=== PATIENT | female | born 1940 | race Caucasian/White ===

== ENCOUNTER 2017-11-12 10:55 | Inpatient (IN) | payer MEDICARE, BC ==
[~2017-11-12] VITALS: Ht 162.6 cm; Wt 77.0 kg
[~2017-11-12 10:55] MED LIST: ASCO500T8 PO; CELE200C PO; CHOL40002 PO; GABA300C10 PO; HYDR-3245 PO; IRON PO; LISI-167 PO; LOPE2TAB28 PO; MELA2.5T PO; OMEP-110 PO; OXYGEN NAS; PRAV10TA2 PO; PROBIOTIC GUMMIE PO; ROPI2TAB3 PO; SERT25TA PO; SITA25TA PO
[2017-11-12] MEDS ORDERED: [UNRECOGNIZED DRUG - OTHER] PO (11:06)
[2017-11-12] MEDS ORDERED: SODIUM CHLORIDE FLUSH 10ML SYR IVF ONE (11:30)
[2017-11-12] MEDS ORDERED: ALBUTEROL/IPRATROPIUM 2.5MG/0.5MG, 3 ML NPPB ONE (11:30)
[2017-11-12] MEDS ORDERED: methylPREDNISolone SOD SUCC 125 MG/2 ML IVP ONE (11:30)
[2017-11-12] MEDS ORDERED: methylPREDNISolone SOD SUCC 125 MG/2 ML ONE (11:31)
[2017-11-12] MEDS ORDERED: ALBUTEROL/IPRATROPIUM 2.5MG/0.5MG, 3 ML ONE ×2 (11:40→15:03)
[2017-11-12] MEDS ORDERED: BUDE10.2 INH (11:51)
[2017-11-12] MEDS ORDERED: POTA99TA24 PO (11:51)
[2017-11-12] MEDS ORDERED: AMLO10TA2 PO (11:51)
[2017-11-12] MEDS ORDERED: BUPR100T11 PO (11:51)
[2017-11-12] MEDS ORDERED: OMEP-110 PO (11:51)
[2017-11-12] MEDS ORDERED: TIOT18CA INH (11:51)
[2017-11-12] MEDS ORDERED: BENA40TA2 PO (11:51)
[2017-11-12 12:04] LABS: BASOPHILS # (AUTO) 0.01 x10^3/uL (0-0.1); BASOPHILS % (AUTO) 0 % (0-1); EOSINOPHILS % (AUTO) 1 % (1-7); LYMPHOCYTES # (AUTO) 1.26 x10^3/uL (1-3.4); LYMPHOCYTES % (AUTO) 8 % (22-44); MD NO; MEAN CORPUSCULAR HEMOGLOBIN 27.3 pg (27.0-34.8); MEAN CORPUSCULAR HGB CONC 32.2 g/dL (32.4-35.8); MEAN CORPUSCULAR VOLUME 84.9 fL (80-100); MEAN PLATELET VOLUME 8.1 fL (7.4-10.4); MONOCYTES # (AUTO) 0.04 x10^3/uL (0.2-0.8); MONOCYTES % (AUTO) 0 % (2-9); NEUTROPHILS # (AUTO) 15.05 x10^3/uL (1.8-6.8); NEUTROPHILS % (AUTO) 91 % (42-75); PLATELET COUNT 264 x10^3/uL (130-400); RED BLOOD COUNT 4.37 x10^6/uL (3.82-5.3); RED CELL DISTRIBUTION WIDTH 18.1 % (9.6-15.2)
[2017-11-12 12:15] LABS: ALANINE AMINOTRANSFERASE 22 U/L (12-78); ALBUMIN 3.7 g/dL (3.4-5.0); ANION GAP 7 mmol/L (5-15); CALCIUM 8.3 mg/dL (8.5-10.1); CHLORIDE 103 mmol/L (98-107)
[2017-11-12 12:20] LABS: ALKALINE PHOSPHATASE 90 U/L (45-117); CREATININE 0.87 mg/dL (0.55-1.02); TROPONIN I < 0.015 ng/mL (0.000-0.045)
[2017-11-12 12:22] LABS: BILIRUBIN,TOTAL 0.4 mg/dL (0.2-1.0)
[2017-11-12] MEDS ORDERED: SODIUM CHLORIDE FLUSH 10ML SYR IVF PRN (13:00)
[2017-11-12] MEDS ORDERED: ONDANSETRON ODT 4 MG PO PRN (13:30)
[2017-11-12] MEDS ORDERED: hydrALAzine 20 MG/ML, 1ML IVPush PRN (13:30)
[2017-11-12] MEDS ORDERED: HYDROcodone/APAP 10/325 MG TABLET PO SCH (13:30)
[2017-11-12 14:25] VITALS: BP 152/73
[2017-11-12] MEDS ORDERED: ALBUTEROL/IPRATROPIUM 2.5MG/0.5MG, 3 ML NPPB PRN (15:30)
[2017-11-12] MEDS: SODIUM CHLORIDE 0.9% 1,000 ML IV SCH (16:58)
[2017-11-12] MEDS: GABAPENTIN 300 MG CAPSULE PO SCH ×2 (16:59→21:11)
[2017-11-12] MEDS: AZITHROMYCIN 500 MG in SODIUM CHLORIDE 0.9% 250 ML IV SCH (16:59)
[2017-11-12] MEDS: ALBUTEROL/IPRATROPIUM 2.5MG/0.5MG, 3 ML NPPB SCH (19:07)
[2017-11-12 19:57] VITALS: BP 128/54
[2017-11-12] MEDS ORDERED: LOPERAMIDE 2 MG CAPSULE PO SCH (21:00)
[2017-11-12] MEDS: BUPROPION SR 150 MG TABLET PO SCH (21:05)
[2017-11-12] MEDS: PRAVASTATIN 20 MG TABLET PO SCH (21:11)
[2017-11-12] MEDS: ROPINIROLE 1MG TABLET PO SCH (21:12)
[2017-11-13 01:42] VITALS: BP 112/52
[2017-11-13] MEDS: SODIUM CHLORIDE 0.9% 1,000 ML IV SCH ×3 (02:11→21:54)
[2017-11-13 05:45] LABS: MEAN CORPUSCULAR HEMOGLOBIN 27.4 pg (27.0-34.8); MEAN CORPUSCULAR HGB CONC 32.1 g/dL (32.4-35.8); MEAN CORPUSCULAR VOLUME 85.2 fL (80-100); MEAN PLATELET VOLUME 8.6 fL (7.4-10.4); PLATELET COUNT 244 x10^3/uL (130-400); RED BLOOD COUNT 3.72 x10^6/uL (3.82-5.3); RED CELL DISTRIBUTION WIDTH 18.6 % (9.6-15.2)
[2017-11-13 05:46] LABS: CHLORIDE 106 mmol/L (98-107)
[2017-11-13 06:03] LABS: ALANINE AMINOTRANSFERASE 17 U/L (12-78); ALBUMIN 2.8 g/dL (3.4-5.0); ALKALINE PHOSPHATASE 70 U/L (45-117); ANION GAP 6 mmol/L (5-15); BILIRUBIN,TOTAL 0.5 mg/dL (0.2-1.0); CALCIUM 8.7 mg/dL (8.5-10.1); CREATININE 0.82 mg/dL (0.55-1.02); TOTAL PROTEIN 5.9 g/dL (6.4-8.2)
[2017-11-13 06:24] LABS: MD YES
[2017-11-13] MEDS: ALBUTEROL/IPRATROPIUM 2.5MG/0.5MG, 3 ML NPPB SCH ×5 (06:25→21:37)
[2017-11-13 06:26] LABS: BAND#(MANUAL) 0.57 x10^3/uL; BANDS%(MANUAL) 3 % (0-7); SEG#(MANUAL) 16.24 x10^3/uL (1.8-6.8); SEGS% (MANUAL) 85 % (42-75)
[2017-11-13 06:27] LABS: LYMPH#(MANUAL) 1.53 x10^3/uL (1-3.4); LYMPHS% (MANUAL) 8 % (22-44); MONOS#(MANUAL) 0.76 x10^3/uL (0.3-2.7); MONOS% (MANUAL) 4 % (2-9)
[2017-11-13 06:28] LABS: ANISOCYTOSIS 1+
[2017-11-13 06:29] LABS: OVALOCYTES 1+
[2017-11-13 06:32] LABS: POLYCHROMASIA 1+
[2017-11-13 06:33] LABS: <PLATELET ESTIMATE> ADEQUATE; <PLT MORPHOLOGY> NORMAL PLT MORPH
[2017-11-13 06:34] LABS: SPHEROCYTES 1+
[2017-11-13 07:07] VITALS: BP 130/62
[2017-11-13] MEDS: HYDROcodone/APAP 10/325 MG TABLET PO PRN ×3 (07:43→21:55)
[2017-11-13] MEDS: LISINOPRIL 10 MG TABLET PO SCH (09:00)
[2017-11-13] MEDS ORDERED: SITAGLIPTIN 25MG TABLET PO SCH (09:00)
[2017-11-13] MEDS ORDERED: POTASSIUM GLUCONATE PO SCH (09:00)
[2017-11-13] MEDS ORDERED: MELATONIN 5 MG TABLET PO SCH ×2 (09:00→21:00)
[2017-11-13] MEDS: BUPROPION SR 150 MG TABLET PO SCH ×2 (09:55→21:55)
[2017-11-13] MEDS: OMEPRAZOLE 20 MG CAPSULE.DR PO SCH (09:55)
[2017-11-13] MEDS: ROPINIROLE 1MG TABLET PO SCH ×2 (09:55→21:55)
[2017-11-13] MEDS: BENAZEPRIL 20 MG TABLET PO SCH (09:55)
[2017-11-13] MEDS: ASCORBIC ACID 500 MG TABLET PO SCH (09:55)
[2017-11-13] MEDS: CHOLECALCIFEROL 1,000 UNIT TABLET PO SCH (09:55)
[2017-11-13] MEDS: SERTRALINE 100MG TABLET PO SCH (09:56)
[2017-11-13] MEDS: GABAPENTIN 300 MG CAPSULE PO SCH ×3 (09:56→21:55)
[2017-11-13] MEDS: methylPREDNISolone SOD SUCC 125 MG/2 ML IVPush SCH ×2 (09:56→18:23)
[2017-11-13] MEDS: AMLODIPINE 2.5 MG TABLET PO SCH (09:57)
[2017-11-13] MEDS: GUAIFENESIN/DM 100-10MG, 5ML UDC PO SCH ×4 (10:07→21:56)
[2017-11-13] MEDS: CEFTRIAXONE PMX 2GM/50ML 50 ML IV SCH (11:07)
[2017-11-13 12:51] VITALS: BP 129/60
[2017-11-13] MEDS: AZITHROMYCIN 500 MG in SODIUM CHLORIDE 0.9% 250 ML IV SCH (18:23)
[2017-11-13 20:02] VITALS: BP 134/66
[2017-11-13] MEDS: PRAVASTATIN 20 MG TABLET PO SCH (21:55)
[2017-11-14 00:54] VITALS: BP 124/63
[2017-11-14] MEDS: GUAIFENESIN/DM 100-10MG, 5ML UDC PO SCH ×3 (02:38→09:06)
[2017-11-14] MEDS: methylPREDNISolone SOD SUCC 125 MG/2 ML IVPush SCH ×2 (02:38→09:06)
[2017-11-14 05:55] LABS: CHLORIDE 103 mmol/L (98-107)
[2017-11-14 05:57] LABS: MEAN CORPUSCULAR HEMOGLOBIN 27.5 pg (27.0-34.8); MEAN CORPUSCULAR HGB CONC 32.3 g/dL (32.4-35.8); MEAN CORPUSCULAR VOLUME 85.1 fL (80-100); MEAN PLATELET VOLUME 8.8 fL (7.4-10.4); PLATELET COUNT 231 x10^3/uL (130-400); RED BLOOD COUNT 3.72 x10^6/uL (3.82-5.3); RED CELL DISTRIBUTION WIDTH 18.7 % (9.6-15.2)
[2017-11-14 06:16] LABS: ALANINE AMINOTRANSFERASE 17 U/L (12-78); ALBUMIN 2.9 g/dL (3.4-5.0); ALKALINE PHOSPHATASE 68 U/L (45-117); ANION GAP 7 mmol/L (5-15); BILIRUBIN,TOTAL 0.2 mg/dL (0.2-1.0); CALCIUM 8.7 mg/dL (8.5-10.1); CREATININE 0.83 mg/dL (0.55-1.02); TOTAL PROTEIN 6.4 g/dL (6.4-8.2)
[2017-11-14] MEDS: ALBUTEROL/IPRATROPIUM 2.5MG/0.5MG, 3 ML NPPB SCH ×2 (06:44→11:38)
[2017-11-14 07:23] LABS: BASOPHILS # (AUTO) 0.01 x10^3/uL (0-0.1); BASOPHILS % (AUTO) 0 % (0-1); EOSINOPHILS % (AUTO) 0 % (1-7); LYMPHOCYTES # (AUTO) 0.49 x10^3/uL (1-3.4); LYMPHOCYTES % (AUTO) 4 % (22-44); MD SCAN; MONOCYTES # (AUTO) 0.15 x10^3/uL (0.2-0.8); MONOCYTES % (AUTO) 1 % (2-9); NEUTROPHILS # (AUTO) 11.63 x10^3/uL (1.8-6.8); NEUTROPHILS % (AUTO) 95 % (42-75)
[2017-11-14 07:34] VITALS: BP 136/71
[2017-11-14] MEDS: ROPINIROLE 1MG TABLET PO SCH ×2 (09:00→09:03)
[2017-11-14] MEDS: AMLODIPINE 2.5 MG TABLET PO SCH ×2 (09:00→09:30)
[2017-11-14] MEDS: CHOLECALCIFEROL 1,000 UNIT TABLET PO SCH ×2 (09:00→09:30)
[2017-11-14] MEDS: LISINOPRIL 10 MG TABLET PO SCH ×2 (09:00→09:06)
[2017-11-14] MEDS: CEFTRIAXONE PMX 2GM/50ML 50 ML IV SCH (09:03)
[2017-11-14] MEDS: BENAZEPRIL 20 MG TABLET PO SCH (09:04)
[2017-11-14] MEDS: BUPROPION SR 150 MG TABLET PO SCH (09:05)
[2017-11-14] MEDS: ASCORBIC ACID 500 MG TABLET PO SCH (09:05)
[2017-11-14] MEDS: GABAPENTIN 300 MG CAPSULE PO SCH (09:06)
[2017-11-14] MEDS: SERTRALINE 100MG TABLET PO SCH (09:06)
[2017-11-14] MEDS: SODIUM CHLORIDE 0.9% 1,000 ML IV SCH (09:29)
[2017-11-14] MEDS: OMEPRAZOLE 20 MG CAPSULE.DR PO SCH (09:30)
[2017-11-14] MEDS ORDERED: AZIT250T PO (10:27)
[2017-11-14] MEDS ORDERED: CEFD300C37 PO ×2 (10:27→13:03)
== END 2017-11-14 13:55 | disposition home or self-care (01) | DRG 871 ==
LOC: ED 11:25 → EDIP 12:44 → 3NE 14:13
PROVIDERS: ADMIT Internal Medicine; ATTEND Internal Medicine
DX: A41.9 Sepsis, unspecified organism (principal); J18.9 Pneumonia, unspecified organism; J96.01 Acute respiratory failure with hypoxia; J44.1 Chronic obstructive pulmonary disease with (acute) exacerbation; E87.3 Alkalosis; J44.0 Chronic obstructive pulmonary disease with (acute) lower respiratory infection; Z87.891 Personal history of nicotine dependence; I25.2 Old myocardial infarction; I10 Essential (primary) hypertension; E78.00 Pure hypercholesterolemia, unspecified; E87.6 Hypokalemia; Z99.81 Dependence on supplemental oxygen; R91.1 Solitary pulmonary nodule; T38.0X5A Adverse effect of glucocorticoids and synthetic analogues, initial encounter; D72.828 Other elevated white blood cell count
CPT/HCPCS: 36415; 71046; 71250; 80053; 83605; 83735; 83880; 84100; 84145; 84484; 85025; 87040; 87070; 87205; 93005; 94640; 99285; J0456; J0696; J7620; J2930; J7030; J7050

== ENCOUNTER → 2018-02-18 | Outpatient (CLI) | payer MEDICARE, BC ==
[~2018-02-18] MED LIST changes: +AMLO10TA6 PO; +AZIT250T PO; +BENA40TA3 PO; +BUDE10.2 INH; +BUPR100T11 PO; +CEFD300C37 PO; +FERR-46 PO; +IPRA3AMP30 NEB; +IPRA4AER INH; +LACT1CAP35 PO; +POTA99TA24 PO; +TIOT18CA INH; +[UNRECOGNIZED DRUG - OTHER] PO; +combivent NEB
[2018-02-18 13:45] LABS: ALBUMIN 3.8 g/dL (3.4-5.0); ANION GAP 5 mmol/L (5-15); CALCIUM 8.9 mg/dL (8.5-10.1); CHLORIDE 107 mmol/L (98-107)
[2018-02-18 13:47] LABS: ALANINE AMINOTRANSFERASE 22 U/L (12-78); ALKALINE PHOSPHATASE 97 U/L (45-117); BILIRUBIN,TOTAL 0.3 mg/dL (0.2-1.0); CREATININE 0.86 mg/dL (0.55-1.02); TOTAL PROTEIN 7.3 g/dL (6.4-8.2)
== END | disposition home or self-care (01) ==
LOC: STAR 11:46
PROVIDERS: ATTEND Internal Medicine Gastroenterology
DX: Z01.818 Encounter for other preprocedural examination (principal); D50.9 Iron deficiency anemia, unspecified; R63.4 Abnormal weight loss; J44.9 Chronic obstructive pulmonary disease, unspecified; E11.9 Type 2 diabetes mellitus without complications; Z87.891 Personal history of nicotine dependence
CPT/HCPCS: 36415; 80053

== ENCOUNTER 2018-02-24 08:11 | Day surgery (SDC) | payer MEDICARE, BC ==
[~2018-02-24] VITALS: Ht 162.6 cm; Wt 73.1 kg
[2018-02-24 09:19] VITALS: BP 116/56
[2018-02-24] MEDS ORDERED: LACTATED RINGERS 1,000 ML IV SCH (09:19)
[2018-02-24] MEDS ORDERED: PROPOFOL 10 MG/ML, 50ML ONE (10:50)
[2018-02-24] MEDS ORDERED: LIDOCAINE-MPF 2% ,5ML ONE (10:50)
== END 2018-02-24 13:15 | disposition home or self-care (01) ==
LOC: OUT 08:11
PROVIDERS: ATTEND Internal Medicine Gastroenterology
DX: D12.0 Benign neoplasm of cecum (principal); D12.4 Benign neoplasm of descending colon; D12.5 Benign neoplasm of sigmoid colon; K31.819 Angiodysplasia of stomach and duodenum without bleeding; K55.20 Angiodysplasia of colon without hemorrhage; K57.30 Diverticulosis of large intestine without perforation or abscess without bleeding; K44.9 Diaphragmatic hernia without obstruction or gangrene; J44.9 Chronic obstructive pulmonary disease, unspecified; I25.10 Atherosclerotic heart disease of native coronary artery without angina pectoris; Z88.5 Allergy status to narcotic agent
CPT/HCPCS: 43239; 45385; 88305; J2704; J3490; J7120

== ENCOUNTER 2018-05-26 21:03 | Inpatient (IN) | payer MEDICARE, BC ==
[~2018-05-26] VITALS: Ht 162.6 cm; Wt 80.1 kg
[2018-05-26] MEDS ORDERED: ACETAMINOPHEN 500 MG TABLET ONE (21:38)
--- NOTE | 2018-05-26 21:44 | NUR ---
PT TO XRAY
[2018-05-26] MEDS ORDERED: ACETAMINOPHEN 500 MG TABLET PO ONE (22:00)
[2018-05-26 22:06] LABS: BASOPHILS # (AUTO) 0.05 x10^3/uL (0-0.1); BASOPHILS % (AUTO) 0 % (0-1); EOSINOPHILS # (AUTO) 0.19 x10^3/uL (0-0.4); EOSINOPHILS % (AUTO) 1 % (1-7); LYMPHOCYTES # (AUTO) 1.64 x10^3/uL (1-3.4); LYMPHOCYTES % (AUTO) 9 % (22-44); MD NO; MEAN CORPUSCULAR HEMOGLOBIN 28.2 pg (27.0-34.8); MEAN CORPUSCULAR HGB CONC 32.8 g/dL (32.4-35.8); MEAN CORPUSCULAR VOLUME 85.9 fL (80-100); MONOCYTES # (AUTO) 0.69 x10^3/uL (0.2-0.8); MONOCYTES % (AUTO) 4 % (2-9); NEUTROPHILS # (AUTO) 14.97 x10^3/uL (1.8-6.8); NEUTROPHILS % (AUTO) 85 % (42-75); PLATELET COUNT 264 x10^3/uL (130-400); RED BLOOD COUNT 3.82 x10^6/uL (3.82-5.3); RED CELL DISTRIBUTION WIDTH 15.4 % (9.6-15.2)
[2018-05-26 22:13] LABS: RAPID INFLUENZA A Negative (Negative); RAPID INFLUENZA B Negative (Negative)
[2018-05-26 22:19] LABS: ALANINE AMINOTRANSFERASE 19 U/L (12-78); ALBUMIN 3.3 g/dL (3.4-5.0); ANION GAP 6 mmol/L (5-15); CALCIUM 8.2 mg/dL (8.5-10.1); CHLORIDE 104 mmol/L (98-107); CREATININE 0.84 mg/dL (0.55-1.02)
[2018-05-26 22:21] LABS: ALKALINE PHOSPHATASE 87 U/L (45-117); BILIRUBIN,TOTAL 0.5 mg/dL (0.2-1.0); TOTAL PROTEIN 6.8 g/dL (6.4-8.2)
[2018-05-26 22:30] LABS: TROPONIN I < 0.015 ng/mL (0.000-0.045)
[2018-05-26] MEDS ORDERED: CEFTRIAXONE 1,000 MG in SODIUM CHLORIDE 0.9% 50 ML IVPB ONE (22:30)
[2018-05-26] MEDS ORDERED: AZITHROMYCIN 500 MG in SODIUM CHLORIDE 0.9% 250 ML IV ONE (22:30)
[2018-05-26] MEDS ORDERED: CEFTRIAXONE PMX 1GM/50ML 50 ML ONE (22:40)
--- NOTE | 2018-05-26 22:45 | NUR ---
PT RESTING. VSS. ABX RUNNING. PT TO BE ADMITTED. CALL LIGHT IN REACH
[2018-05-26] MEDS: BUPROPION 100 MG TABLET PO SCH (23:00)
[2018-05-26] MEDS ORDERED: ACETAMINOPHEN 325 MG TABLET PO PRN (23:00)
[2018-05-26] MEDS ORDERED: ONDANSETRON ODT 4 MG PO PRN (23:00)
[2018-05-26] MEDS ORDERED: POLYETHYLENE GLYCOL 17 GM PACKET PO PRN (23:00)
[2018-05-26] MEDS ORDERED: HYDROcodone/APAP 10/325 MG TABLET PO PRN (23:00)
[2018-05-26] MEDS ORDERED: MORPHINE SULFATE 4 MG/ML, 1ML IVPush PRN (23:00)
[2018-05-26] MEDS ORDERED: ONDANSETRON 2MG/ML, 2ML IVPush PRN (23:00)
[2018-05-26] MEDS ORDERED: GUAIFENESIN/DM 200-20MG, 10ML UDC PO PRN (23:00)
[2018-05-26] MEDS ORDERED: BISACODYL 10 MG SUPP PR PRN (23:00)
[2018-05-27 00:13] VITALS: BP 116/52
[2018-05-27] MEDS: SODIUM CHLORIDE 0.9% 1,000 ML IV SCH ×3 (00:59→22:52)
[2018-05-27] MEDS: HEPARIN 5,000 UNITS/ML, 1ML SQ SCH ×3 (00:59→17:34)
[2018-05-27] MEDS: DOXYCYCLINE 100 MG in DEXTROSE 5% 250 ML IV SCH ×2 (01:00→13:58)
[2018-05-27] MEDS ORDERED: PLEASE ENTER ALLERGIES MC SCH (01:30)
[2018-05-27] MEDS: PRAVASTATIN 20 MG TABLET PO SCH ×2 (01:37→20:26)
[2018-05-27] MEDS: ROPINIROLE 1MG TABLET PO SCH ×2 (01:37→20:26)
[2018-05-27] MEDS: OMEPRAZOLE 20 MG CAPSULE.DR PO SCH ×2 (01:37→20:27)
[2018-05-27] MEDS: GABAPENTIN 300 MG CAPSULE PO SCH ×4 (01:43→20:26)
[2018-05-27] MEDS: BENAZEPRIL 20 MG TABLET PO SCH ×2 (01:45→20:27)
[2018-05-27 02:00] VITALS: BP 132/64
[2018-05-27] MEDS ORDERED: ALBUTEROL/IPRATROPIUM 2.5MG/0.5MG, 3 ML ONE (02:00)
[2018-05-27] MEDS: ALBUTEROL/IPRATROPIUM 2.5MG/0.5MG, 3 ML HHN SCH ×4 (02:04→20:43)
[2018-05-27 02:30] LABS: MICROSCOPIC NOT IND
[2018-05-27 02:53] LABS: CULTURE INDICATED? NO
[2018-05-27 05:38] LABS: BASOPHILS # (AUTO) 0.01 x10^3/uL (0-0.1); BASOPHILS % (AUTO) 0 % (0-1); EOSINOPHILS # (AUTO) 0.25 x10^3/uL (0-0.4); EOSINOPHILS % (AUTO) 2 % (1-7); LYMPHOCYTES # (AUTO) 1.16 x10^3/uL (1-3.4); LYMPHOCYTES % (AUTO) 9 % (22-44); MD NO; MEAN CORPUSCULAR HEMOGLOBIN 28.6 pg (27.0-34.8); MEAN CORPUSCULAR HGB CONC 33.4 g/dL (32.4-35.8); MEAN CORPUSCULAR VOLUME 85.7 fL (80-100); MEAN PLATELET VOLUME 8.4 fL (7.4-10.4); MONOCYTES # (AUTO) 0.57 x10^3/uL (0.2-0.8); MONOCYTES % (AUTO) 4 % (2-9); NEUTROPHILS # (AUTO) 11.34 x10^3/uL (1.8-6.8); NEUTROPHILS % (AUTO) 85 % (42-75); PLATELET COUNT 236 x10^3/uL (130-400); RED BLOOD COUNT 3.65 x10^6/uL (3.82-5.3); RED CELL DISTRIBUTION WIDTH 15.5 % (9.6-15.2)
[2018-05-27 05:47] LABS: ALANINE AMINOTRANSFERASE 15 U/L (12-78); ALBUMIN 3.1 g/dL (3.4-5.0); ANION GAP 5 mmol/L (5-15); CALCIUM 8.4 mg/dL (8.5-10.1); CHLORIDE 107 mmol/L (98-107); CREATININE 0.84 mg/dL (0.55-1.02)
[2018-05-27 05:49] LABS: ALKALINE PHOSPHATASE 78 U/L (45-117); BILIRUBIN,TOTAL 0.5 mg/dL (0.2-1.0); TOTAL PROTEIN 6.3 g/dL (6.4-8.2)
[2018-05-27] MEDS ORDERED: IPRATROPIUM 0.5 MG/2.5 ML INHA NPPB SCH (07:00)
[2018-05-27 08:12] VITALS: BP 136/68
[2018-05-27] MEDS: BUPROPION 100 MG TABLET PO SCH ×2 (08:42→20:27)
[2018-05-27] MEDS: POTASSIUM CHLORIDE 10 MEQ TABLET.ER PO SCH (08:43)
[2018-05-27] MEDS: AMLODIPINE 10 MG TAB PO SCH (08:43)
[2018-05-27] MEDS: SERTRALINE 100MG TABLET PO SCH (08:43)
[2018-05-27] MEDS: SENNA/DOCUSATE TABLET PO SCH (08:43)
[2018-05-27] MEDS ORDERED: OXYGEN NAS SCH (09:00)
[2018-05-27] MEDS: BUDESONIDE 0.5 MG/2 ML INHA INH SCH ×2 (09:22→20:43)
[2018-05-27 12:45] VITALS: BP 101/58
[2018-05-27 20:10] VITALS: BP 158/65
[2018-05-27] MEDS: CEFTRIAXONE PMX 1GM/50ML 50 ML IV SCH (23:15)
[2018-05-28 00:16] VITALS: BP 119/65
[2018-05-28] MEDS: ALBUTEROL/IPRATROPIUM 2.5MG/0.5MG, 3 ML HHN SCH ×4 (02:00→22:15)
[2018-05-28] MEDS: DOXYCYCLINE 100 MG in DEXTROSE 5% 250 ML IV SCH ×2 (02:54→14:57)
[2018-05-28] MEDS: HEPARIN 5,000 UNITS/ML, 1ML SQ SCH ×3 (02:54→21:26)
[2018-05-28] MEDS ORDERED: HYDROcodone/APAP 10/325 MG TABLET PO ONE (05:00)
[2018-05-28 06:05] LABS: BASOPHILS # (AUTO) 0.01 x10^3/uL (0-0.1); BASOPHILS % (AUTO) 0 % (0-1); EOSINOPHILS # (AUTO) 0.24 x10^3/uL (0-0.4); EOSINOPHILS % (AUTO) 3 % (1-7); LYMPHOCYTES # (AUTO) 1.08 x10^3/uL (1-3.4); LYMPHOCYTES % (AUTO) 12 % (22-44); MD NO; MEAN CORPUSCULAR HEMOGLOBIN 28.2 pg (27.0-34.8); MEAN CORPUSCULAR HGB CONC 33.1 g/dL (32.4-35.8); MEAN CORPUSCULAR VOLUME 85.3 fL (80-100); MEAN PLATELET VOLUME 8.3 fL (7.4-10.4); MONOCYTES # (AUTO) 0.58 x10^3/uL (0.2-0.8); MONOCYTES % (AUTO) 7 % (2-9); NEUTROPHILS # (AUTO) 7.01 x10^3/uL (1.8-6.8); NEUTROPHILS % (AUTO) 79 % (42-75); PLATELET COUNT 237 x10^3/uL (130-400); RED BLOOD COUNT 3.46 x10^6/uL (3.82-5.3); RED CELL DISTRIBUTION WIDTH 15.5 % (9.6-15.2)
[2018-05-28 06:11] LABS: ANION GAP 5 mmol/L (5-15); CALCIUM 8.1 mg/dL (8.5-10.1); CHLORIDE 105 mmol/L (98-107); CREATININE 0.74 mg/dL (0.55-1.02)
[2018-05-28 06:40] VITALS: BP 116/63
[2018-05-28] MEDS: SERTRALINE 100MG TABLET PO SCH (08:52)
[2018-05-28] MEDS: GABAPENTIN 300 MG CAPSULE PO SCH ×3 (08:52→21:31)
[2018-05-28] MEDS: POTASSIUM CHLORIDE 10 MEQ TABLET.ER PO SCH (08:52)
[2018-05-28] MEDS: AMLODIPINE 10 MG TAB PO SCH (08:52)
[2018-05-28] MEDS: BUPROPION 100 MG TABLET PO SCH ×2 (08:53→21:30)
[2018-05-28] MEDS: SENNA/DOCUSATE TABLET PO SCH (08:57)
[2018-05-28] MEDS: BUDESONIDE 0.5 MG/2 ML INHA INH SCH ×2 (09:00→22:15)
[2018-05-28] MEDS: HYDROcodone/APAP 10/325 MG TABLET PO PRN ×2 (10:58→18:17)
[2018-05-28] MEDS ORDERED: OMNIPAQUE 350 MG/ML, 100ML BOTTLE ONE (12:47)
[2018-05-28 12:51] VITALS: BP 123/68
[2018-05-28 14:58] LABS: TROPONIN I < 0.015 ng/mL (0.000-0.045)
[2018-05-28] MEDS ORDERED: NITROGLYCERIN 0.4 MG BOTTLE (25 TABS) SL PRN (16:00)
[2018-05-28 18:36] LABS: TROPONIN I < 0.015 ng/mL (0.000-0.045)
[2018-05-28] MEDS: SODIUM CHLORIDE 0.9% 1,000 ML IV SCH (18:52)
[2018-05-28 19:20] VITALS: BP 153/70
[2018-05-28] MEDS: BENAZEPRIL 20 MG TABLET PO SCH (21:29)
[2018-05-28] MEDS: PRAVASTATIN 20 MG TABLET PO SCH (21:32)
[2018-05-28] MEDS: ROPINIROLE 1MG TABLET PO SCH (21:32)
[2018-05-28] MEDS: OMEPRAZOLE 20 MG CAPSULE.DR PO SCH (21:32)
[2018-05-28] MEDS: CEFTRIAXONE PMX 1GM/50ML 50 ML IV SCH (23:29)
[2018-05-29 01:01] VITALS: BP 124/67
[2018-05-29] MEDS: ALBUTEROL/IPRATROPIUM 2.5MG/0.5MG, 3 ML HHN SCH ×2 (02:00→07:20)
[2018-05-29] MEDS: HEPARIN 5,000 UNITS/ML, 1ML SQ SCH ×2 (02:47→11:04)
[2018-05-29] MEDS: DOXYCYCLINE 100 MG in DEXTROSE 5% 250 ML IV SCH ×2 (02:47→14:34)
[2018-05-29 05:59] LABS: BASOPHILS # (AUTO) 0.02 x10^3/uL (0-0.1); BASOPHILS % (AUTO) 0 % (0-1); EOSINOPHILS # (AUTO) 0.26 x10^3/uL (0-0.4); EOSINOPHILS % (AUTO) 3 % (1-7); LYMPHOCYTES # (AUTO) 0.85 x10^3/uL (1-3.4); LYMPHOCYTES % (AUTO) 10 % (22-44); MD NO; MEAN CORPUSCULAR HEMOGLOBIN 28.1 pg (27.0-34.8); MEAN CORPUSCULAR HGB CONC 32.4 g/dL (32.4-35.8); MEAN CORPUSCULAR VOLUME 86.8 fL (80-100); MEAN PLATELET VOLUME 8.4 fL (7.4-10.4); MONOCYTES # (AUTO) 0.44 x10^3/uL (0.2-0.8); MONOCYTES % (AUTO) 5 % (2-9); NEUTROPHILS # (AUTO) 7.17 x10^3/uL (1.8-6.8); NEUTROPHILS % (AUTO) 82 % (42-75); PLATELET COUNT 236 x10^3/uL (130-400); RED BLOOD COUNT 3.33 x10^6/uL (3.82-5.3); RED CELL DISTRIBUTION WIDTH 15.7 % (9.6-15.2)
[2018-05-29 06:02] LABS: ANION GAP 7 mmol/L (5-15); CALCIUM 8.8 mg/dL (8.5-10.1); CHLORIDE 104 mmol/L (98-107); CREATININE 0.77 mg/dL (0.55-1.02)
[2018-05-29] MEDS: HYDROcodone/APAP 10/325 MG TABLET PO PRN ×2 (06:08→11:04)
[2018-05-29] MEDS: BUDESONIDE 0.5 MG/2 ML INHA INH SCH (07:20)
[2018-05-29 07:51] VITALS: BP 154/71
[2018-05-29] MEDS: GABAPENTIN 300 MG CAPSULE PO SCH (08:30)
[2018-05-29] MEDS: SENNA/DOCUSATE TABLET PO SCH (08:30)
[2018-05-29] MEDS: POTASSIUM CHLORIDE 10 MEQ TABLET.ER PO SCH (08:30)
[2018-05-29] MEDS: AMLODIPINE 10 MG TAB PO SCH (08:30)
[2018-05-29] MEDS: BUPROPION 100 MG TABLET PO SCH (08:30)
[2018-05-29] MEDS: SERTRALINE 100MG TABLET PO SCH (08:30)
[2018-05-29] MEDS ORDERED: REGADENOSON 0.4 MG/5 ML SYRINGE ONE (09:18)
[2018-05-29] MEDS ORDERED: CEFD300C37 PO (14:02)
[2018-05-29 14:07] VITALS: BP 116/60
== END 2018-05-29 16:56 | disposition home or self-care (01) | DRG 190 ==
LOC: ED 22:12 → EDIP 22:36 → 4EST 05-27 00:50
PROVIDERS: ADMIT Internal Medicine; ATTEND Internal Medicine
DX: J44.0 Chronic obstructive pulmonary disease with (acute) lower respiratory infection (principal); J18.1 Lobar pneumonia, unspecified organism; E44.1 Mild protein-calorie malnutrition; J96.11 Chronic respiratory failure with hypoxia; J44.1 Chronic obstructive pulmonary disease with (acute) exacerbation; D64.9 Anemia, unspecified; Z68.30 Body mass index [BMI] 30.0-30.9, adult; E78.5 Hyperlipidemia, unspecified; F32.9 Major depressive disorder, single episode, unspecified; I10 Essential (primary) hypertension; I25.10 Atherosclerotic heart disease of native coronary artery without angina pectoris; K52.9 Noninfective gastroenteritis and colitis, unspecified; Z66 Do not resuscitate; Z87.891 Personal history of nicotine dependence; Z90.710 Acquired absence of both cervix and uterus; I25.2 Old myocardial infarction; Z99.81 Dependence on supplemental oxygen; Z90.49 Acquired absence of other specified parts of digestive tract; Z88.5 Allergy status to narcotic agent
CPT/HCPCS: 36415; 71046; 71275; 78452; 80048; 80053; 81003; 83605; 83690; 84145; 84484; 85025; 87040; 87070; 87205; 87400; 93005; 93017; 93970; 94640; 96365; 99285; G0378; J0696; J1644; J2785; J7060; J7620; J7626; Q9967; A9502; C9898; J7030